=== PATIENT | female | born 1955 | race Caucasian/White ===

== ENCOUNTER → 2019-07-05 | Outpatient (CLI) | payer OTHER ==
[~2019-07-05] MED LIST: 5-HTP50 MG; 5-HTP50 MG PO; ACETAMINOPHEN650 M5 PO; ALLEGRA180 MG PO; AMBIEN; AMBIEN 5 MG TABL5 MG PO; ASA81BEC; ASPIRIN81 M2 PO; ATORVASTATIN CA20 MG PO; CALCIUM 1,0001 EACH PO; CALCIUM 600 +1 EAC5 PO; DYAZIDE 37.5-21 EACH PO; DYRENIUM100 MG; HYDROXYZINE HCL50 MG PO; K-DUR 20 MEQ T20 MEQ PO; LEVOTHROID PO; LEVOXYL75 MCG PO; LOSARTAN-HCTZ1 EAC1 PO; MEDROLDOSEPACK PO; MSM500 MG; NEXIUM; OMEPRAZOLE 20 M20 M1 PO; PEPCID40 MG PO; POTASSIUM20 PO; PREMARIN PO; PREMARIN0.9 MG PO; TOPROL XL50 MG PO; XANAX 0.25 MG0.25 MG PO; ZEGERID 40 MG1 EACH PO
== END ==
LOC: CAT 15:21
DX: Z13.6 Encounter for screening for cardiovascular disorders (principal); E78.00 Pure hypercholesterolemia, unspecified; I25.10 Atherosclerotic heart disease of native coronary artery without angina pectoris